=== PATIENT | female | born 1990 | race African-American/Black ===

== ENCOUNTER 2016-12-18 15:37 | Emergency (ER) | payer MEDICAID ==
[~2016-12-18] VITALS: Ht 170.2 cm; Wt 71.0 kg
[~2016-12-18 15:37] MED LIST: BIRTH CONTROL; FOLI-43 PO; HYDR-3933 PO; TRAM50TA; TRAM50TA3 PO; [UNRECOGNIZED DRUG - OTHER]
[2016-12-18] MEDS ORDERED: DIPHENHYDRAMINE 50MG/ML VIAL IV STA (17:51)
[2016-12-18] MEDS ORDERED: ASPIRIN 81MG TABLET PO ONE (18:00)
[2016-12-18] MEDS ORDERED: SODIUM CHLORIDE 0.9% 1000ML BAG (SEPSIS BOLUS) IV ONE (18:00)
[2016-12-18] MEDS: MORPHINE SULFATE 2 MG/ML CPJ (NOT FOR IM USE) IV PRN ×2 (18:23→21:17)
[2016-12-18 18:25] LABS: BASOPHILS % 0.4 % (0.0-2.0); EOSINOPHILS % 0.5 % (0.0-5.0); HEMATOCRIT. 36.3 % (36.0-48.0); HEMOGLOBIN. 12.6 g/dL (12.0-16.0); LYMPHOCYTES % 9.8 % (20.0-50.0); MEAN CORPUSCULAR HEMOGLOBIN 27.8 pg (28.0-32.0); MEAN CORPUSCULAR VOLUME 79.6 fL (81.0-99.0); MEAN PLATELET VOLUME 12.5 fl (7.4-10.4); MONOCYTES % 4.8 % (2.0-8.0); NEUTROPHILS % 84.5 % (40.0-76.0); RED BLOOD CELL COUNT 4.56 mill/uL (4.2-5.4); RED CELL DISTRIBUTION WIDTH 17.5 % (11.6-14.6)
[2016-12-18 18:29] LABS: INR 1.1; PROTHROMBIN TIME 11.8 sec
[2016-12-18 18:33] LABS: HCG SCREEN NEGATIVE
[2016-12-18 18:39] LABS: CARBON DIOXIDE 26 mEq/L (21-32); CHLORIDE 105 mEq/L (98-107); ETHANOL BLOOD < 10 mg/dL; TROPONIN I < 0.02 ng/mL (0.00-0.04)
[2016-12-18 19:49] LABS: CLARITY URINE CLOUDY (CLEAR); COLOR URINE YELLOW (YELLOW); GLUCOSE URINE NEGATIVE (NEGATIVE); KETONES URINE NEGATIVE (NEGATIVE); LEUKOCYTE ESTERASE URINE 3+ (NEGATIVE); NITRITE URINE NEGATIVE (NEGATIVE); OCCULT BLOOD URINE NEGATIVE (NEGATIVE); PROTEIN URINE NEGATIVE (NEGATIVE); SPECIFIC GRAVITY URINE 1.013 (1.005-1.030)
[2016-12-18] MEDS ORDERED: CEFTRIAXONE 1 G PREMIX 50 ML IV ONE (20:00)
[2016-12-18 20:06] LABS: *AMPHETAMINES SCREEN URINE NEGATIVE (NEGATIVE); *BARBITURATES SCREEN URINE NEGATIVE (NEGATIVE); *BENZODIAZEPINES SCREEN URINE NEGATIVE (NEGATIVE); *COCAINE SCREEN URINE NEGATIVE (NEGATIVE); METHADONE URINE SCREEN NEGATIVE (NEGATIVE); OPIATES URINE SCREEN NEGATIVE (NEGATIVE); PHENCYCLIDINE URINE SCREEN NEGATIVE (NEGATIVE)
[2016-12-18 20:11] LABS: CANNABINOID URINE SCREEN PRESUMTIVE POSITIVE (NEGATIVE)
[2016-12-18 21:18] LABS: PLATELET 75 x1000/uL (130-400)
[2016-12-18 21:48] VITALS: BP 122/76
== END 2016-12-18 21:51 | disposition home or self-care (01) ==
LOC: ER 15:37
DX: D57.00 Hb-SS disease with crisis, unspecified (principal); N39.0 Urinary tract infection, site not specified; J45.909 Unspecified asthma, uncomplicated; Z98.890 Other specified postprocedural states
CPT/HCPCS: 36415; 71010; 80053; 80305; 81001; 83605; 84484; 84703; 85025; 85044; 85610; 93005; 96365; 96375; 99285; G0482; J0696; J1200; J2270; J7030; Z7610

== ENCOUNTER 2018-05-03 11:56 | Emergency (ER) | payer MEDICAID ==
[~2018-05-03] VITALS: Ht 165.1 cm; Wt 83.0 kg
[2018-05-03] MEDS ORDERED: SODIUM CHLORIDE 0.9% 1,000 ML IV ONE ×2 (16:29→19:00)
[2018-05-03] MEDS ORDERED: KETOROLAC 30MG/ML VIAL IV ONE (17:00)
[2018-05-03 17:25] LABS: CLARITY URINE CLEAR (CLEAR); COLOR URINE YELLOW (YELLOW); KETONES URINE NEGATIVE (NEGATIVE); LEUKOCYTE ESTERASE URINE 3+ (NEGATIVE); NITRITE URINE NEGATIVE (NEGATIVE); OCCULT BLOOD URINE TRACE (NEGATIVE); PROTEIN URINE NEGATIVE (NEGATIVE); SPECIFIC GRAVITY URINE 1.009 (1.005-1.030)
[2018-05-03 17:27] LABS: BASOPHILS % 1.2 % (0.0-2.0); EOSINOPHILS % 2.3 % (0.0-5.0); HEMATOCRIT. 36.1 % (36.0-48.0); HEMOGLOBIN. 12.6 g/dL (12.0-16.0); LYMPHOCYTES % 22.9 % (20.0-50.0); MEAN CORPUSCULAR HEMOGLOBIN 27.7 pg (28.0-32.0); MEAN CORPUSCULAR VOLUME 79.4 fL (81.0-99.0); MEAN PLATELET VOLUME 11.8 fl (7.4-10.4); MONOCYTES % 3.6 % (2.0-8.0); PLATELET 103 x1000/uL (130-400); RED BLOOD CELL COUNT 4.55 mill/uL (4.2-5.4); RED CELL DISTRIBUTION WIDTH 18.8 % (11.6-14.6)
[2018-05-03 17:29] LABS: CHLORIDE 109 mEq/L (98-107)
[2018-05-03 17:30] LABS: INR 1.1; PROTHROMBIN TIME 10.8 sec (9.1-11.1)
[2018-05-03] MEDS ORDERED: ONDANSETRON 4MG ODT PO ONE (18:00)
[2018-05-03] MEDS ORDERED: MORPHINE SULFATE 10 MG/ML CPJ IV ONE ×2 (18:00→19:00)
[2018-05-03] MEDS ORDERED: SULFAMETHOXAZOLE/TRIMETHOPRIM 800/160MG TABLET PO ONE (19:15)
[2018-05-03 20:15] VITALS: BP 110/66
== END 2018-05-03 20:15 | disposition home or self-care (01) ==
LOC: ER 11:56
DX: N39.0 Urinary tract infection, site not specified (principal); M79.10 Myalgia, unspecified site; J45.909 Unspecified asthma, uncomplicated; D57.1 Sickle-cell disease without crisis; Z98.890 Other specified postprocedural states
CPT/HCPCS: 36415; 80053; 81003; 81025; 85025; 85044; 85610; 87086; 96374; 96375; 96376; 99283; J1885; J2270; J7030; Q0162

== ENCOUNTER 2019-03-31 19:37 | Inpatient (IN) | payer MEDICAID ==
[~2019-03-31] VITALS: Ht 165.1 cm; Wt 81.6 kg
[2019-03-31] MEDS ORDERED: SODIUM CHLORIDE 0.9% 1,000 ML IV ONE ×2 (22:10→23:29)
[2019-03-31 22:53] LABS: CHLORIDE 110 mEq/L (98-107)
[2019-03-31 22:57] LABS: ETHANOL BLOOD < 10 mg/dL
[2019-03-31 23:00] LABS: BASOPHILS % 0.7 % (0.0-2.0); EOSINOPHILS % 1.4 % (0.0-5.0); HEMATOCRIT. 34.7 % (36.0-48.0); HEMOGLOBIN. 12.3 g/dL (12.0-16.0); LYMPHOCYTES % 13.1 % (20.0-50.0); MEAN CORPUSCULAR HEMOGLOBIN 28.2 pg (28.0-32.0); MEAN CORPUSCULAR VOLUME 79.9 fL (81.0-99.0); MONOCYTES % 6.1 % (2.0-8.0); NEUTROPHILS % 78.7 % (40.0-76.0); PLATELET 81 x1000/uL (130-400); RED BLOOD CELL COUNT 4.35 mill/uL (4.2-5.4); RED CELL DISTRIBUTION WIDTH 18.8 % (11.6-14.6)
[2019-03-31 23:15] LABS: PLATELET ESTIMATE DECREASED
[2019-03-31] MEDS ORDERED: ONDANSETRON HCL 4MG/2ML INJ IV STA (23:29)
[2019-03-31] MEDS ORDERED: MORPHINE SULFATE 4 MG/ML CPJ (NOT FOR IM USE) IV STA (23:29)
[2019-03-31 23:55] LABS: *AMPHETAMINES SCREEN URINE NEGATIVE (NEGATIVE); *BARBITURATES SCREEN URINE NEGATIVE (NEGATIVE); *BENZODIAZEPINES SCREEN URINE NEGATIVE (NEGATIVE); *COCAINE SCREEN URINE NEGATIVE (NEGATIVE)
[2019-03-31 23:56] LABS: METHADONE URINE SCREEN NEGATIVE (NEGATIVE); PHENCYCLIDINE URINE SCREEN NEGATIVE (NEGATIVE)
[2019-04-01 00:02] LABS: CANNABINOID URINE SCREEN PRESUMTIVE POSITIVE (NEGATIVE); OPIATES URINE SCREEN PRESUMTIVE POSITIVE (NEGATIVE)
[2019-04-01] MEDS ORDERED: FENTANYL CITRATE/PF 50MCG/ML 2ML VIAL IV ONE (00:45)
[2019-04-01 08:00] VITALS: BP_SYST 122; BP_SYST 134; BP_DIAS 64; BP_DIAS 76
[2019-04-01] MEDS ORDERED: MORPHINE SULFATE 2 MG/ML CPJ (NOT FOR IM USE) IV PRN (08:15)
[2019-04-01] MEDS ORDERED: ACETAMINOPHEN 325MG TABLET PO PRN (08:15)
[2019-04-01] MEDS ORDERED: ONDANSETRON HCL 4MG/2ML INJ IV PRN (08:15)
[2019-04-01 09:13] VITALS: BP 134/76
[2019-04-01] MEDS: SODIUM CHLORIDE 0.9% 1,000 ML IV SCH ×2 (09:40→21:02)
[2019-04-01] MEDS: FOLIC ACID 1MG TABLET PO SCH (09:40)
[2019-04-01 11:04] VITALS: BP 134/76
[2019-04-01 12:00] VITALS: BP_SYST 122; BP_SYST 131; BP_DIAS 62; BP_DIAS 72
[2019-04-01] MEDS: MORPHINE SULFATE 2 MG/ML CPJ (NOT FOR IM USE) IV PRN ×3 (15:16→23:49)
[2019-04-01] MEDS: PREDNISONE 20MG TABLET PO SCH (15:50)
[2019-04-01 16:00] VITALS: BP 114/65
[2019-04-01 20:00] VITALS: BP 130/78
[2019-04-01 20:43] LABS: CLARITY URINE CLEAR (CLEAR); COLOR URINE YELLOW (YELLOW); KETONES URINE NEGATIVE (NEGATIVE); LEUKOCYTE ESTERASE URINE 1+ (NEGATIVE); NITRITE URINE NEGATIVE (NEGATIVE); OCCULT BLOOD URINE TRACE (NEGATIVE); PROTEIN URINE NEGATIVE (NEGATIVE); SPECIFIC GRAVITY URINE 1.006 (1.005-1.030)
[2019-04-01] MEDS: FAMOTIDINE 20MG/2ML VIAL IV SCH (21:01)
[2019-04-01] MEDS: ZOLPIDEM TARTRATE 5MG TABLET PO PRN (21:28)
[2019-04-02] VITALS: BP 128/65
[2019-04-02 04:00] VITALS: BP 122/68
[2019-04-02] MEDS: MORPHINE SULFATE 2 MG/ML CPJ (NOT FOR IM USE) IV PRN ×4 (04:01→20:07)
[2019-04-02 07:02] LABS: BASOPHILS % 0.9 % (0.0-2.0); EOSINOPHILS % 0.2 % (0.0-5.0); HEMATOCRIT. 31.5 % (36.0-48.0); HEMOGLOBIN. 11.3 g/dL (12.0-16.0); LYMPHOCYTES % 15.2 % (20.0-50.0); MEAN CORPUSCULAR HEMOGLOBIN 28.3 pg (28.0-32.0); MEAN CORPUSCULAR VOLUME 79.3 fL (81.0-99.0); MONOCYTES % 6.5 % (2.0-8.0); NEUTROPHILS % 77.2 % (40.0-76.0); RED BLOOD CELL COUNT 3.97 mill/uL (4.2-5.4); RED CELL DISTRIBUTION WIDTH 18.6 % (11.6-14.6)
[2019-04-02 08:00] VITALS: BP 139/88
[2019-04-02] MEDS: FAMOTIDINE 20MG/2ML VIAL IV SCH ×2 (08:28→20:05)
[2019-04-02] MEDS: PREDNISONE 20MG TABLET PO SCH (08:28)
[2019-04-02] MEDS: FOLIC ACID 1MG TABLET PO SCH (08:29)
[2019-04-02 08:53] LABS: MEAN PLATELET VOLUME 12.3 fl (7.4-10.4); PLATELET 76 x1000/uL (130-400)
[2019-04-02] MEDS: SODIUM CHLORIDE 0.9% 1,000 ML IV SCH (10:26)
[2019-04-02 12:00] VITALS: BP 128/74
[2019-04-02 16:00] VITALS: BP 121/76
[2019-04-02] MEDS: DIPHENHYDRAMINE 50MG/ML VIAL IV PRN (17:32)
[2019-04-02 20:00] VITALS: BP 132/80
[2019-04-02] MEDS: ZOLPIDEM TARTRATE 5MG TABLET PO PRN (21:43)
[2019-04-03] VITALS: BP 117/62
[2019-04-03] MEDS: SODIUM CHLORIDE 0.9% 1,000 ML IV SCH (01:05)
[2019-04-03 04:00] VITALS: BP 113/74
[2019-04-03] MEDS: MORPHINE SULFATE 2 MG/ML CPJ (NOT FOR IM USE) IV PRN ×4 (04:12→23:38)
[2019-04-03 08:00] VITALS: BP 105/77
[2019-04-03] MEDS: PREDNISONE 20MG TABLET PO SCH (09:05)
[2019-04-03] MEDS: FAMOTIDINE 20MG/2ML VIAL IV SCH ×2 (09:05→23:38)
[2019-04-03] MEDS: FOLIC ACID 1MG TABLET PO SCH (09:05)
[2019-04-03] MEDS: DIPHENHYDRAMINE 50MG/ML VIAL IV PRN ×2 (10:07→16:51)
[2019-04-03 12:00] VITALS: BP 124/75
[2019-04-03 16:00] VITALS: BP 125/68
[2019-04-03 17:49] LABS: CHLORIDE 109 mEq/L (98-107)
[2019-04-03] MEDS: HYDROCODONE/ACETAMINOPHEN 10/325MG TABLET PO PRN (18:05)
[2019-04-03 20:00] VITALS: BP 113/65
[2019-04-03 21:11] LABS: BASOPHILS % 0.4 % (0.0-2.0); HEMATOCRIT. 34.3 % (36.0-48.0); HEMOGLOBIN. 11.9 g/dL (12.0-16.0); MEAN CORPUSCULAR HEMOGLOBIN 27.9 pg (28.0-32.0); MEAN CORPUSCULAR VOLUME 80.7 fL (81.0-99.0); MEAN PLATELET VOLUME 12.5 fl (7.4-10.4); NEUTROPHILS % 88.6 % (40.0-76.0); PLATELET 93 x1000/uL (130-400); RED BLOOD CELL COUNT 4.25 mill/uL (4.2-5.4); RED CELL DISTRIBUTION WIDTH 18.7 % (11.6-14.6)
[2019-04-03] MEDS: ZOLPIDEM TARTRATE 5MG TABLET PO PRN (23:24)
[2019-04-04] MEDS: HYDROCODONE/ACETAMINOPHEN 10/325MG TABLET PO PRN (03:31)
[2019-04-04 04:00] VITALS: BP 116/71
[2019-04-04] MEDS: MORPHINE SULFATE 2 MG/ML CPJ (NOT FOR IM USE) IV PRN ×3 (05:32→16:34)
[2019-04-04 08:00] VITALS: BP_SYST 112; BP_SYST 156; BP_DIAS 64; BP_DIAS 74
[2019-04-04] MEDS: FOLIC ACID 1MG TABLET PO SCH (08:27)
[2019-04-04] MEDS: FAMOTIDINE 20MG/2ML VIAL IV SCH (08:27)
[2019-04-04 12:00] VITALS: BP 112/64
[2019-04-04] MEDS: DIPHENHYDRAMINE 50MG/ML VIAL IV PRN (14:30)
[2019-04-04] MEDS ORDERED: HYDR-4009 MT (14:36)
[2019-04-04 15:05] VITALS: BP 112/64
[2019-04-04 16:00] VITALS: BP 112/53
[2019-04-04 16:34] VITALS: BP 112/53
== END 2019-04-04 18:00 | disposition home or self-care (01) | DRG 662 ==
LOC: ER 19:37 → 6EST 04-01 01:30 → EDBEDREQ 04-01 01:40 → EDBEDREQTM 04-01 01:40 → ENRESERV 04-01 07:08
PROVIDERS: ADMIT Internal Medicine; ATTEND Internal Medicine
DX: D57.00 Hb-SS disease with crisis, unspecified (principal); E87.8 Other disorders of electrolyte and fluid balance, not elsewhere classified; F12.90 Cannabis use, unspecified, uncomplicated; T78.3XXA Angioneurotic edema, initial encounter; X58.XXXA Exposure to other specified factors, initial encounter; J45.909 Unspecified asthma, uncomplicated; Z98.891 History of uterine scar from previous surgery; Z79.899 Other long term (current) drug therapy; Y93.89 Activity, other specified; Y92.89 Other specified places as the place of occurrence of the external cause; Y99.8 Other external cause status
CPT/HCPCS: 36415; 71045; 80048; 80305; 80320; 81003; 83880; 84484; 85044; 86850; 86900; 93005; 93970; 96361; 96374; 96375; 99285; A6261; J1200; J2270; J2405; J3010; J3490; J7030; J7512; G0480

== ENCOUNTER 2019-06-12 10:26 | Emergency (ER) | payer MEDICAID ==
[~2019-06-12] VITALS: Ht 165.1 cm; Wt 81.0 kg
[~2019-06-12 10:26] MED LIST changes: +HYDR-4009 MT
[2019-06-12 11:06] VITALS: BP 135/90
[2019-06-12] MEDS ORDERED: ONDANSETRON 4MG ODT PO ONE (11:30)
[2019-06-12] MEDS ORDERED: HYDROCODONE/ACETAMINOPHEN 5/325MG TABLET PO ONE (11:30)
== END 2019-06-12 12:37 | disposition home or self-care (01) ==
LOC: ER 10:26
DX: S93.601A Unspecified sprain of right foot, initial encounter (principal); X58.XXXA Exposure to other specified factors, initial encounter; Y93.01 Activity, walking, marching and hiking; Y92.480 Sidewalk as the place of occurrence of the external cause
CPT/HCPCS: 73630; 99283; Q0162

== ENCOUNTER 2022-11-12 17:48 | Emergency (ER) | payer MEDICARE, MEDICAID ==
[~2022-11-12] VITALS: Ht 165.1 cm; Wt 73.5 kg
[2022-11-12 18:44] LABS: CHLORIDE 108 mEq/L (98-107)
[2022-11-12 18:45] LABS: BASOPHILS % 0.7 % (0.0-2.0); EOSINOPHILS % 2.6 % (0.0-5.0); HEMATOCRIT. 35.5 % (36.0-48.0); HEMOGLOBIN. 12.5 g/dL (12.0-16.0); LYMPHOCYTES % 30.6 % (20.0-50.0); MEAN CORPUSCULAR HEMOGLOBIN 28.3 pg (28.0-32.0); MEAN CORPUSCULAR VOLUME 80.6 fL (81.0-99.0); MEAN PLATELET VOLUME 11.8 fl (7.4-10.4); MONOCYTES % 5.6 % (2.0-8.0); NEUTROPHILS % 60.5 % (40.0-76.0); PLATELET 101 x1000/uL (130-400); RED BLOOD CELL COUNT 4.41 mill/uL (4.2-5.4)
[2022-11-12 19:10] LABS: HCG SCREEN NEGATIVE
[2022-11-12 21:00] LABS: CLARITY URINE CLOUDY (CLEAR); COLOR URINE YELLOW (YELLOW); KETONES URINE TRACE (NEGATIVE); LEUKOCYTE ESTERASE URINE TRACE (NEGATIVE); NITRITE URINE NEGATIVE (NEGATIVE); OCCULT BLOOD URINE NEGATIVE (NEGATIVE); PROTEIN URINE NEGATIVE (NEGATIVE); SPECIFIC GRAVITY URINE 1.015 (1.005-1.030)
[2022-11-12] MEDS ORDERED: ACETAMINOPHEN 325MG TABLET PO ONE (21:00)
[2022-11-12] MEDS ORDERED: ONDANSETRON HCL 4MG/2ML INJ IM ONE (21:45)
[2022-11-12] MEDS ORDERED: MORPHINE SULFATE 4 MG/ML CPJ (NOT FOR IM USE) IV ONE (21:45)
[2022-11-12] MEDS ORDERED: NITR-87 MT (22:38)
[2022-11-12] MEDS ORDERED: IBUP-2028 MT (22:38)
[2022-11-12] MEDS ORDERED: HYDR-4001 MT (22:38)
[2022-11-12] MEDS ORDERED: HYDROCODONE/ACETAMINOPHEN 5/325MG TABLET PO ONE (23:30)
[2022-11-13 02:08] VITALS: BP 101/59
== END 2022-11-13 02:10 | disposition home or self-care (01) ==
LOC: ER 17:48
DX: D57.00 Hb-SS disease with crisis, unspecified (principal); N39.0 Urinary tract infection, site not specified; D64.9 Anemia, unspecified; J45.909 Unspecified asthma, uncomplicated; Z79.899 Other long term (current) drug therapy
CPT/HCPCS: 36415; 80053; 81003; 81025; 84703; 85025; 85044; 96372; 96374; 99285; J2270; J2405

== ENCOUNTER 2023-02-22 21:08 | Emergency (ER) | payer MEDICARE, MEDICAID ==
[~2023-02-22] VITALS: Ht 165.1 cm; Wt 74.0 kg
[~2023-02-22 21:08] MED LIST changes: +HYDR-4001 MT; +IBUP-2028 MT; +NITR-87 MT
[2023-02-22 21:09] VITALS: TEMP 98.4; O2SAT 99
[2023-02-22 22:41] LABS: CLARITY URINE CLOUDY (CLEAR); COLOR URINE YELLOW (YELLOW); GLUCOSE URINE NEGATIVE (NEGATIVE); KETONES URINE TRACE (NEGATIVE); LEUKOCYTE ESTERASE URINE 1+ (NEGATIVE); NITRITE URINE NEGATIVE (NEGATIVE); OCCULT BLOOD URINE NEGATIVE (NEGATIVE); PH URINE 5.5 (4.5-8.0); PROTEIN URINE NEGATIVE (NEGATIVE); SPECIFIC GRAVITY URINE 1.015 (1.005-1.030)
[2023-02-22 22:45] VITALS: BP 115/57; PULSE 99; RESP 16
[2023-02-22 22:45] LABS: RBC URINE 0-2 /hpf (0-2); YEAST URINE NONE SEEN
[2023-02-22] MEDS ORDERED: HYDROCODONE/ACETAMINOPHEN 5/325MG TABLET PO ONE (22:45)
[2023-02-22] MEDS ORDERED: KETOROLAC 30MG/ML VIAL IM ONE (22:45)
[2023-02-22 23:08] LABS: BACTERIA URINE 1+; SQUAMOUS EPITHELIAL CELL URINE 2+ /lpf (RARE/1+)
[2023-02-22 23:59] LABS: BASOPHILS % 0.8 % (0.0-2.0); EOSINOPHILS % 1.1 % (0.0-5.0); HEMATOCRIT. 32.6 % (36.0-48.0); HEMOGLOBIN. 11.5 g/dL (12.0-16.0); LYMPHOCYTES % 32.9 % (20.0-50.0); MEAN CORPUSCULAR HEMOGLOBIN 28.3 pg (28.0-32.0); MEAN CORPUSCULAR HGB CONC 35.3 g/dL (31.0-37.0); MEAN CORPUSCULAR VOLUME 80.3 fL (81.0-99.0); MEAN PLATELET VOLUME 11.3 fl (7.4-10.4); MONOCYTES % 6.3 % (2.0-8.0); NEUTROPHILS % 58.9 % (40.0-76.0); PLATELET 93 x1000/uL (130-400); RED BLOOD CELL COUNT 4.07 mill/uL (4.2-5.4); RED CELL DISTRIBUTION WIDTH 18.4 % (11.6-14.6); WHITE BLOOD COUNT 7.8 x1000/uL (4.5-11.0)
[2023-02-23 00:03] LABS: DIFFERENTIAL COMMENT 1
[2023-02-23 00:10] LABS: CHLORIDE 107 mEq/L (98-107); INDEX HEMOLYSI 1 (1-3); INDEX ICTERIC 1 (1-4); INDEX LIPEMIC 1 (1-3); POTASSIUM 3.4 mEq/L (3.5-5.1); SODIUM 138 mEq/L (136-145)
[2023-02-23 00:18] LABS: ALANINE AMINOTRANSFERASE 19 IU/L (13-61); ALBUMIN 3.6 g/dL (3.4-5.0); ASPARTATE AMINOTRANSFERASE 18 IU/L (15-37); BILIRUBIN TOTAL 1.4 mg/dL (0.1-1.0); CALCIUM 8.5 mg/dL (8.5-10.1); CARBON DIOXIDE 27 mEq/L (21-32); CREATININE 0.8 mg/dL (0.6-1.3); GLUCOSE 85 mg/dL (70-105); PROTEIN TOTAL 6.8 g/dL (6.0-8.3); UREA NITROGEN BLOOD 5 mg/dL (7-21)
== END 2023-02-23 01:15 | disposition home or self-care (01) ==
LOC: ER 21:08
DX: D57.1 Sickle-cell disease without crisis (principal); M25.551 Pain in right hip; M25.561 Pain in right knee; J45.909 Unspecified asthma, uncomplicated; Z98.890 Other specified postprocedural states
CPT/HCPCS: 36415; 80053; 81003; 81025; 85025; 85044; 99283

== ENCOUNTER 2024-01-22 19:32 | Emergency (ER) | payer MEDICARE, MEDICAID ==
[~2024-01-22] VITALS: Ht 172.7 cm; Wt 90.0 kg
[2024-01-22 19:44] VITALS: O2SAT 98
[2024-01-22 21:55] LABS: BASOPHILS % 0.7 % (0.0-2.0); EOSINOPHILS % 2.7 % (0.0-5.0); HEMOGLOBIN. 12.7 g/dL (12.0-16.0); LYMPHOCYTES % 20.3 % (20.0-50.0); MEAN CORPUSCULAR HEMOGLOBIN 28.9 pg (28.0-32.0); MEAN CORPUSCULAR HGB CONC 35.2 g/dL (31.0-37.0); MEAN CORPUSCULAR VOLUME 81.9 fL (81.0-99.0); MEAN PLATELET VOLUME 11.7 fl (7.4-10.4); MONOCYTES % 7.2 % (2.0-8.0); NEUTROPHILS % 69.1 % (40.0-76.0); PLATELET 103 x1000/uL (130-400); RED BLOOD CELL COUNT 4.39 mill/uL (4.2-5.4); RED CELL DISTRIBUTION WIDTH 19.5 % (11.6-14.6); WHITE BLOOD COUNT 10.8 x1000/uL (4.5-11.0)
[2024-01-22 21:58] LABS: DIFFERENTIAL COMMENT 1
[2024-01-22 22:07] LABS: CHLORIDE 108 mEq/L (98-107); POTASSIUM 3.6 mEq/L (3.5-5.1); SODIUM 138 mEq/L (136-145)
[2024-01-22 22:08] LABS: CARBON DIOXIDE 25 mEq/L (21-32)
[2024-01-22 22:09] LABS: CALCIUM 9.2 mg/dL (8.7-10.4)
[2024-01-22 22:12] LABS: HCG SCREEN NEGATIVE
[2024-01-22 22:14] LABS: GLUCOSE 99 mg/dL (70-105); UREA NITROGEN BLOOD 6 mg/dL (9-23)
[2024-01-22] MEDS: MORPHINE SULFATE 4 MG/ML INJ (FOR IV/IM USE) IM ONE (22:24)
[2024-01-23] MEDS ORDERED: IBUP-2029 MT (00:20)
[2024-01-23] MEDS ORDERED: HYDR-4001 MT (00:21)
[2024-01-23] MEDS: KETOROLAC 30MG/ML VIAL IV ONE (00:35)
[2024-01-23] MEDS: HYDROCODONE/ACETAMINOPHEN 5/325MG TABLET PO ONE (01:47)
[2024-01-23 02:53] VITALS: BP 133/83; PULSE 85; RESP 17; TEMP 36.61404; O2SAT 98
== END 2024-01-23 02:53 | disposition home or self-care (01) ==
LOC: ER 19:32
DX: D57.00 Hb-SS disease with crisis, unspecified (principal); J45.909 Unspecified asthma, uncomplicated; Z98.890 Other specified postprocedural states; Z79.899 Other long term (current) drug therapy
CPT/HCPCS: 99285; 80048; 84703; 85025; 85044; 36415; 96372; 96374; J2270; J1885